=== PATIENT | female | born 1995 | race American Indian/Alaskan Native ===

== ENCOUNTER 2018-03-24 08:42 | Emergency (ER) | payer MEDICAID ==
[2018-03-24 09:29] LABS: HCG,QUALITATIVE URINE NEGATIVE (NEGATIVE)
[2018-03-24 09:31] LABS: SQUAMOUS EPITHIAL 1 /hpf (0-5); URINE BILIRUBIN NEGATIVE (NEGATIVE); URINE BLOOD NEGATIVE (NEGATIVE); URINE CLARITY Clear (Clear); URINE COLOR Yellow (YELLOW); URINE GLUCOSE (UA) NORMAL (Normal); URINE LEUKOCYTE ESTERASE NEG Leu/uL (Negative); URINE PROTEIN NEGATIVE (NEGATIVE); URINE UROBILINOGEN NORMAL mg/dL (0.2-1.0)
--- NOTE | 2018-03-24 10:52 | C.PDOC ---
History Of Present Illness 22 year old female presents to the ER for evaluation of pelvic pain radiating to her rectum, which began this morning. She states while walking this morning, the pain developed. Patient denies vaginal discharge/bleeding, fever, dysuria, nausea, vomiting. Patient has an IUD, placed 2 years ago after the of her son. She last saw her CIVIL ENGINEERING INTERN last month, states that her exam was normal and IUD was in place. Time Seen by Provider: 03/24/18 09:01 Chief Complaint (Nursing): Female Genitourinary History Per: Patient History/Exam Limitations: no limitations Onset/Duration Of Symptoms: Hrs Current Symptoms Are (Timing): Still Present Severity: Moderate Quality Of Discomfort: "Pain" Abnormal Vaginal Bleeding: No Past Medical History Reviewed: Historical Data, Nursing Documentation, Vital Signs Vital Signs: Last Vital Signs Temp 98.9 F 03/24/18 14:48 Pulse 72 03/24/18 14:48 Resp 20 03/24/18 14:48 BP 104/68 03/24/18 14:48 Pulse Ox 100 03/24/18 15:57 - Medical History PMH: No Chronic Diseases Surgical History: No Surg Hx Family History: States: No Known Family Hx - Social History Hx Tobacco Use: No Hx Alcohol Use: Yes Hx Substance Use: No Review Of Systems Constitutional: Negative for: Fever Gastrointestinal: Positive for: Rectal Pain. Negative for: Nausea, Vomiting, Abdominal Pain Genitourinary: Positive for: Pelvic Pain. Negative for: Dysuria, Hematuria, Vaginal Discharge, Vaginal Bleeding Skin: Negative for: Rash Physical Exam - Physical Exam Appears: Well, Non-toxic, No Acute Distress Skin: Normal Color, Warm, Dry Eye(s): bilateral: Normal Inspection Oral Mucosa: Moist Cardiovascular: Rhythm Regular Respiratory: Normal Breath Sounds, No Accessory Muscle Use, No Wheezing Gastrointestinal/Abdominal: Bowel Sounds, Soft, Tenderness (mild suprapubic tenderness, (-) McBurney's ) Pelvic: Normal External Exam (no vesicular lesions), Normal Speculum Exam, No Vaginal Bleeding, Vaginal Discharge (scant white vaginal discharge in vault), No Cervical Motion Tenderness, No Cervix Open, No Adnexal Tenderness, Tender Uterus (mild), Other (IUD string protruding from the cervical os) Extremity: Bilateral: Atraumatic, Normal Color And Temperature, Normal ROM Neurological/Psych: Oriented x3, Normal Speech Gait: Steady ED Course And Treatment - Laboratory Results Lab Interpretation: Normal (Negative preg, normal UA) O2 Sat by Pulse Oximetry: 100 (RA) Pulse Ox Interpretation: Normal - CT Scan/US Transvaginal/Pelvic US Other Rad Studies (CT/US): Read By Radiologist, Radiology Report Reviewed CT/US Interpretation: Accession No. : [id number]. Patient Name / ID : JIL ESPARZA / [id number]. Exam Date : 03/24/2018 12:22:12 ( Approved ). Study Comment : Sex / Age : F / 22Y. Creator : Chele Chowdhury MD. Dictator : Chele Chowdhury MD. Hog Operator : Pipe Smoking Machine Operator : Chele Chowdhury MD. Approver2 : Report Date : 03/24/2018 13:25:07. My Comment : . Date of service: 03/24/2018. HISTORY: PELVIC PAIN, IUD, EVAL UTERUS OVARIES. COMPARISON: None available. TECHNIQUE: Grayscale, color Doppler and spectral evaluation the pelvis performed transabdominally and transvaginally. FINDINGS: UTERUS: Measures 7.4 x 3.7 x 5.3 cm. Anteverted. Normal in size and appearance. No fibroid or other mass lesion seen. ENDOMETRIUM: Measures 4 mm in diameter. Intrauterine device. Question of a limb of the intrauterine device in the uterine tissue. CERVIX: No cervical abnormality identified. RIGHT OVARY: Measures 4.8 x 2.6 x 3.3 cm. Lobulated hypoechoic area within the right ovary measuring 1.9 x 1.1 x 1.8 cm. Normal flow. LEFT OVARY: Measures cm. No solid mass. Normal flow. FREE FLUID: No significant free fluid noted. OTHER FINDINGS: None. IMPRESSION: Question of a limb of the intrauterine device in the junctional zone/myometrium. Lobulated hypoechoic area within the right ovary measuring up to 1.9 cm with increased through transmission which may represent a hemorrhagic cyst. Short interval follow-up can be obtained as clinically warranted. Progress Note: UA, Upreg ordered and reviewed. Transvaginal US ordered to evaluate IUD. 1:28 - L&D called to discuss patient with data conversion developer, she is currently doing Csection and will call when done. 2:20PM- Discussed patient with data conversion developer regional education coordinator Dr. Gaona. She recommends Ibuprofen 600mg and follow up with patient's data conversion developer for possible removal of IUD. Reevaluation Time: 14:30 Reassessment Condition: Improved (On reassessment, patient is resting comfortably, in no distress/pain. She was instructed to follow up with her ob/ plasma table operator in 1-2 days, and given Rx for Ibuprofen. She understands she should return to ED immediately if symptoms worsen.) - Physician Consult Information Physician Contacted: ARI Outcome Of Conversation: Discussed patient with data conversion developer regional education coordinator Dr. Gaona, she is aware of US finsings, recommends NSAIDs and follow up with patient's data conversion developer ( may need removal of IUD in OR). Disposition Counseled Patient/Family Regarding: Studies Performed, Diagnosis, Need For Followup, Rx Given - Disposition Referrals: [facility] [Outside] [facility] [Outside] Disposition: HOME/ ROUTINE Disposition Time: 14:30 Condition: STABLE Additional Instructions: FOLLOW UP WITH YOUR CIVIL ENGINEERING INTERN WITHIN 1 WEEK USE PAIN MEDICATION NEEDED RETURN TO ER IF YOUR SYMPTOMS WORSEN Prescriptions: Ibuprofen [Motrin Tab] 600 mg PO Q6 PRN #30 tab PRN Reason: fever/pain Instructions: Acute Pelvic Pain (DC) Forms: Work/School/Gym Excuse, [facility] (Sami) Print Language: AUSTRALIAN - Clinical Impression Clinical Impression: Hemorrhagic cyst of ovary, IUD migration - Scribe Statement The provider has reviewed the documentation as recorded by the Huan Al Provider Attestation: All medical record entries made by the Huan were at my direction and personally dictated by me. I have reviewed the chart and agree that the record accurately reflects my personal performance of the history, physical exam, medical decision making, and the department course for this patient. I have also personally directed, reviewed, and agree with the discharge instructions and disposition.
[2018-03-24 11:18] VITALS: RESP 20
--- NOTE | 2018-03-24 13:26 | US ---
Date of service: 03/24/2018 HISTORY: PELVIC PAIN, IUD, EVAL UTERUS OVARIES COMPARISON: None available. TECHNIQUE: Grayscale, color Doppler and spectral evaluation the pelvis performed transabdominally and transvaginally FINDINGS: UTERUS: Measures 7.4 x 3.7 x 5.3 cm. Anteverted. Normal in size and appearance. No fibroid or other mass lesion seen. ENDOMETRIUM: Measures 4 mm in diameter. Intrauterine device. Question of a limb of the intrauterine device in the uterine tissue. CERVIX: No cervical abnormality identified. RIGHT OVARY: Measures 4.8 x 2.6 x 3.3 cm. Lobulated hypoechoic area within the right ovary measuring 1.9 x 1.1 x 1.8 cm. Normal flow. LEFT OVARY: Measures cm. No solid mass. Normal flow. FREE FLUID: No significant free fluid noted. OTHER FINDINGS: None. IMPRESSION: Question of a limb of the intrauterine device in the junctional zone/myometrium. Lobulated hypoechoic area within the right ovary measuring up to 1.9 cm with increased through transmission which may represent a hemorrhagic cyst. Short interval follow-up can be obtained as clinically warranted.
[2018-03-24 13:29] VITALS: O2SAT 100
[2018-03-24 14:50] VITALS: BP 104/68; PULSE 72; TEMP 98.9
== END 2018-03-24 14:48 | disposition home or self-care (01) ==
LOC: C.ER 08:42
DX: N83.209 Unspecified ovarian cyst, unspecified side (principal); Z97.5 Presence of (intrauterine) contraceptive device

== ENCOUNTER 2018-06-17 09:38 | Emergency (ER) | payer MEDICAID ==
[2018-06-17 09:53] VITALS: O2SAT 100
[2018-06-17 10:59] LABS: SQUAMOUS EPITHIAL 10 /hpf (0-5); URINE BACTERIA RARE (<OCC); URINE BILIRUBIN NEGATIVE (NEGATIVE); URINE BLOOD NEGATIVE (NEGATIVE); URINE CLARITY Hazy (Clear); URINE COLOR Yellow (YELLOW); URINE GLUCOSE (UA) NORMAL (Normal); URINE LEUKOCYTE ESTERASE 1+ Leu/uL (Negative); URINE PROTEIN NEGATIVE (NEGATIVE); URINE UROBILINOGEN NORMAL mg/dL (0.2-1.0)
--- NOTE | 2018-06-17 11:11 | C.PDOC ---
History Of Present Illness 22 year old female presents to the ED for evaluation of lower abdominal pain bilaterally and vomiting x3 for the last 3 hours today. Notes normal stool this morning, no prior surgeries, and no known allergies to drugs. Reports no pain or feeling nauseous during visit. Denies fever, recent travel, new foods, and any other associated symptoms. <Ginny Armendariz - Last Filed: 06/17/18 13:09> History Per: Patient History/Exam Limitations: no limitations Onset/Duration Of Symptoms: Hrs Current Symptoms Are (Timing): Gone <Ginny Armendariz - Last Filed: 06/17/18 13:09> <Tegan Botello - Last Filed: 06/18/18 08:59> Time Seen by Provider: 06/17/18 10:02 Chief Complaint (Nursing): Abdominal Pain Past Medical History Reviewed: Historical Data, Nursing Documentation, Vital Signs Vital Signs: Last Vital Signs Temp 99 F 06/17/18 09:51 Pulse 87 06/17/18 09:51 Resp 18 06/17/18 09:51 BP 120/81 06/17/18 09:51 Pulse Ox 100 06/17/18 09:51 Family History: States: Unknown Family Hx - Social History Hx Tobacco Use: No Hx Alcohol Use: Yes Hx Substance Use: No - Immunization History Hx Tetanus Toxoid Vaccination: No Hx Influenza Vaccination: No Hx Pneumococcal Vaccination: No <Ginny Armendariz - Last Filed: 06/17/18 13:09> Vital Signs: Last Vital Signs Temp 98.1 F 06/17/18 12:25 Pulse 79 06/17/18 12:25 Resp 14 06/17/18 12:25 BP 116/83 06/17/18 12:25 Pulse Ox 100 06/17/18 13:10 <Tegan Botello - Last Filed: 06/18/18 08:59> Review Of Systems Except As Marked, All Systems Reviewed And Found Negative. Constitutional: Negative for: Fever, Chills Gastrointestinal: Positive for: Nausea, Vomiting, Abdominal Pain (lower abdomi nal. bilaterally. ) <Ginny Armendariz - Last Filed: 06/17/18 13:09> Physical Exam - Physical Exam Appears: Well, Non-toxic, No Acute Distress Skin: Normal Color, Warm, Dry Head: Atraumatic, Normacephalic Eye(s): bilateral: Normal Inspection Oral Mucosa: Moist Neck: Normal ROM, Supple Chest: Symmetrical, No Deformity Cardiovascular: Rhythm Regular, No Murmur Respiratory: Normal Breath Sounds, No Rales, No Rhonchi, No Wheezing Gastrointestinal/Abdominal: Normal Exam, Soft, No Tenderness, No Distention, No Guarding, No Rebound Extremity: Normal ROM (x4), No Deformity Neurological/Psych: Oriented x3, Normal Speech, Normal Motor, Normal Sensation, Normal Reflexes Gait: Steady <Ginny Armendariz - Last Filed: 06/17/18 13:09> ED Course And Treatment - Laboratory Results Urine POC: Negative O2 Sat by Pulse Oximetry: 100 (RA) Pulse Ox Interpretation: Normal <Ginny Armendariz - Last Filed: 06/17/18 13:09> Medical Decision Making Medical Decision Making: Plan: --Urinalysis. --Urine HCG --Given: Zofran ODT Progress/Update: Patient stable for discharge home. Prescribed Macrobid and Motrin. <Ginny Armendariz - Last Filed: 06/17/18 13:09> Disposition - Disposition Disposition Time: 12:14 <Ginny Armendariz - Last Filed: 06/17/18 13:09> <Tegan Botello - Last Filed: 06/18/18 08:59> - Disposition Referrals: [facility] [Outside] [facility] [Outside] Disposition: HOME/ ROUTINE Condition: GOOD Additional Instructions: Follow up with the medical doctor within 1-2 days. Return if worsened. Prescriptions: Ibuprofen [Motrin] 1 tab PO TID PRN #30 tab PRN Reason: Pain Nitrofurantoin Macrocrystals [Macrobid] 1 cap PO BID #14 cap Instructions: Urinary Tract Infections in Adults Forms: [facility] (Montserratian), Work Excuse - Clinical Impression Clinical Impression: UTI (urinary tract infection) - PA / HOME HEALTH PHYSICAL THERAPIST / Resident Statement MD/DO has reviewed & agrees with the documentation as recorded. - Scribe Statement The provider has reviewed the documentation as recorded by the Scribe (Christiana Hernandez) All medical record entries made by the Scribe were at my direction and personally dictated by me. I have reviewed the chart and agree that the record accurately reflects my personal performance of the history, physical exam, medical decision making, and the department course for this patient. I have also personally directed, reviewed, and agree with the discharge instructions and disposition. <Ginny Armendariz - Last Filed: 06/17/18 13:09>
[2018-06-17 12:26] VITALS: BP 116/83; PULSE 79; RESP 14; TEMP 98.1
== END 2018-06-17 12:26 | disposition home or self-care (01) ==
LOC: C.ER 09:38
DX: N39.0 Urinary tract infection, site not specified (principal)

== ENCOUNTER 2018-08-07 16:46 | Emergency (ER) | payer MEDICAID ==
[2018-08-07 16:53] VITALS: PULSE 72; RESP 20; TEMP 98.1; O2SAT 100
--- NOTE | 2018-08-07 17:13 | C.PDOC ---
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 The patient reports that similar symptoms happened 2 months ago but the symptoms resolved spontaneously. Patient denies sob, nausea, vomiting, palpitations, fever, numbness, weakness, recent travel or any other complaints at this time. Patient reports that she currently has no chest pain. Time Seen by Provider: 08/07/18 17:02 Chief Complaint (Nursing): Chest Pain History Per: Patient History/Exam Limitations: no limitations Onset/Duration Of Symptoms: Hrs Current Symptoms Are (Timing): Still Present Pain Scale Rating Of: 1 Quality: "Pain" Exacerbating Factors: Deep Breathing Recent travel outside of the [place]: No Past Medical History Reviewed: Historical Data, Nursing Documentation, Vital Signs Vital Signs: Last Vital Signs Temp 98.1 F 08/07/18 16:49 Pulse 72 08/07/18 16:49 Resp 20 08/07/18 16:49 BP 118/79 08/07/18 16:49 Pulse Ox 100 08/07/18 16:49 - Medical History PMH: No Chronic Diseases Surgical History: No Surg Hx Family History: States: No Known Family Hx - Social History Hx Tobacco Use: No Hx Alcohol Use: Yes Hx Substance Use: No - Immunization History Hx Tetanus Toxoid Vaccination: No Hx Influenza Vaccination: No Hx Pneumococcal Vaccination: No Review Of Systems Constitutional: Negative for: Fever, Chills Cardiovascular: Positive for: Chest Pain. Negative for: Palpitations Respiratory: Negative for: Cough, Shortness of Breath Gastrointestinal: Negative for: Nausea, Vomiting Skin: Negative for: Rash Physical Exam - Physical Exam Appears: Non-toxic, No Acute Distress Skin: Warm, Dry, No Rash Head: Atraumatic, Normacephalic Eye(s): bilateral: Normal Inspection Oral Mucosa: Moist Throat: No Erythema, No Exudate Neck: Normal ROM, No Midline Cervical Tenderness, No Paracervical Tenderness, Supple Chest: Symmetrical, Tenderness (anterior chest wall ), No Ecchymosis Cardiovascular: Rhythm Regular, No Friction Rub, No Murmur Respiratory: Normal Breath Sounds, No Accessory Muscle Use, No Rales, No Rhonchi, No Wheezing Gastrointestinal/Abdominal: Soft, No Tenderness, No Guarding, No Rebound Back: Normal Inspection, No CVA Tenderness Extremity: Normal ROM, No Pedal Edema, Capillary Refill (<2 seconds), No Swelling Neurological/Psych: Oriented x3, Normal Speech, Normal Cognition, Normal Motor ED Course And Treatment ECG: Interpreted By Me, Viewed By Me ECG Rhythm: Sinus Rhythm Rate From EC (BPMR) O2 Sat by Pulse Oximetry: 100 (RA) Pulse Ox Interpretation: Normal - Other Rad CXR X-Ray: Viewed By Me, Read By Radiologist Interpretation: Date of service: 08/07/2018. HISTORY: chest pain,. COMPARISON: No prior. TECHNIQUE: Chest PA and lateral. FINDINGS: LUNGS: No active pulmonary disease. PLEURA: No significant pleural effusion identified. No pneumothorax apparent. CARDIOVASCULAR: No aortic atherosclerotic calcification present. Normal cardiac size. No pulmonary vascular congestion. OSSEOUS STRUCTURES: No significant abnormalities. VISUALIZED UPPER ABDOMEN: Normal. OTHER FINDINGS: None. IMPRESSION: No active disease. Medical Decision Making Medical Decision Making: CXR is negative. On re-exam, the patient is resting comfortably and reports no pain. Lungs are CTA, heart is RRR, abdomen is soft, non-tender and tolerating PO well. Ambulatory in the ED with steady gait. Follow up with the medical doctor within 1-2 days. Return if worsened. Disposition - Disposition Referrals: [facility] at [facility] [Outside] Anel Stewart MD [Staff Provider] - Javier Soriano MD [Staff Provider] - Disposition: HOME/ ROUTINE Disposition Time: 18:12 Condition: STABLE Additional Instructions: Follow up with the medical doctor within 1-2 days. Return if worsened. Prescriptions: Naproxen [Naprosyn] 500 mg PO BID #20 tab Instructions: Costochondritis (DC) Forms: [facility] (Stateless), Work Excuse - Clinical Impression Clinical Impression: Costochondritis - PA / CALENDAR CONTROL CLERK BLOOD BANK / Resident Statement MD/DO has reviewed & agrees with the documentation as recorded. - Scribe Statement The provider has reviewed the documentation as recorded by the Zhouibchan Rutledge All medical record entries made by the Zhouibchan were at my direction and personally dictated by me. I have reviewed the chart and agree that the record accurately reflects my personal performance of the history, physical exam, medical decision making, and the department course for this patient. I have also personally directed, reviewed, and agree with the discharge instructions and disposition.
--- NOTE | 2018-08-07 17:37 | RAD ---
Date of service: 08/07/2018 HISTORY: chest pain, COMPARISON: No prior. TECHNIQUE: Chest PA and lateral FINDINGS: LUNGS: No active pulmonary disease. PLEURA: No significant pleural effusion identified. No pneumothorax apparent. CARDIOVASCULAR: No aortic atherosclerotic calcification present. Normal cardiac size. No pulmonary vascular congestion. OSSEOUS STRUCTURES: No significant abnormalities. VISUALIZED UPPER ABDOMEN: Normal. OTHER FINDINGS: None. IMPRESSION: No active disease.
[2018-08-07 17:43] VITALS: BP 131/73
== END 2018-08-07 18:44 | disposition home or self-care (01) ==
LOC: C.ER 16:46
DX: M94.0 Chondrocostal junction syndrome [Tietze] (principal)

== ENCOUNTER 2018-10-28 17:43 | Emergency (ER) | payer MEDICAID ==
[2018-10-28 19:23] VITALS: BP 124/74; PULSE 102; RESP 20; TEMP 98.2; O2SAT 98
--- NOTE | 2018-10-28 19:35 | C.PDOC ---
History Of Present Illness 23 year old female presents to the ED for evaluation of flu-like symptoms which began one week ago. Patient was evaluated in another facility 3 days ago. She states she still feels weak, tired, and has generalized body aches and presents to the ED for further evaluation. She denies fever, chills, nausea, vomiting. Time Seen by Provider: 10/28/18 18:42 Chief Complaint (Nursing): Flu-like Symptoms History Per: Patient History/Exam Limitations: no limitations Onset/Duration Of Symptoms: Other (one week ) Current Symptoms Are (Timing): Still Present Location Of Pain: Diffuse Myalgias Associated Symptoms: denies: Fever, Chills, Nausea, Vomiting Additional History Per: Patient Past Medical History Reviewed: Historical Data, Nursing Documentation, Vital Signs Vital Signs: Last Vital Signs Temp 98.2 F 10/28/18 19:10 Pulse 102 H 10/28/18 19:10 Resp 20 10/28/18 19:10 BP 124/74 10/28/18 19:10 Pulse Ox 98 10/28/18 19:10 - Medical History PMH: No Chronic Diseases Surgical History: No Surg Hx Family History: States: Unknown Family Hx - Social History Hx Tobacco Use: No Hx Alcohol Use: Yes Hx Substance Use: No - Immunization History Hx Tetanus Toxoid Vaccination: No Hx Influenza Vaccination: No Hx Pneumococcal Vaccination: No Review Of Systems Constitutional: Positive for: Weakness. Negative for: Fever, Chills Gastrointestinal: Negative for: Nausea, Vomiting Musculoskeletal: Positive for: Other (generalized body aches ) Physical Exam - Physical Exam Appears: Non-toxic, No Acute Distress Skin: Normal Color, Warm, Dry Head: Atraumatic, Normacephalic Eye(s): bilateral: Normal Inspection Oral Mucosa: Moist Neck: Supple Chest: Symmetrical, No Deformity, No Tenderness Cardiovascular: Rhythm Regular, No Murmur Respiratory: Normal Breath Sounds, No Rales, No Rhonchi, No Wheezing Extremity: Normal ROM, Capillary Refill (less than 2 seconds ) Neurological/Psych: Oriented x3, Normal Speech, Normal Cognition ED Course And Treatment O2 Sat by Pulse Oximetry: 98 (on RA) Pulse Ox Interpretation: Normal Medical Decision Making Medical Decision Making: flu like symptoms x 1 week. Tylenol PO given. Disposition Counseled Patient/Family Regarding: Diagnosis, Need For Followup, Rx Given - Disposition Referrals: [facility] [Outside] Disposition: HOME/ ROUTINE Disposition Time: 19:34 Condition: GOOD Additional Instructions: Drink increased fluids. Take ibupforen or tlyneol every 6 hoours for body aches. Drink increased fluids like water, tea, gatorade. Increased bed rest. Instructions: Flu, Adult (DC) Forms: General Discharge Instructions, [facility] (Malay), Work Excuse - Clinical Impression Clinical Impression: Influenza-like illness - PA / SENIOR LEAD JAVA DEVELOPER / Resident Statement MD/DO has reviewed & agrees with the documentation as recorded. - Scribe Statement The provider has reviewed the documentation as recorded by the Scribe (Jaimie Trujillo) All medical record entries made by the Scribe were at my direction and personally dictated by me. I have reviewed the chart and agree that the record accurately reflects my personal performance of the history, physical exam, medical decision making, and the department course for this patient. I have also personally directed, reviewed, and agree with the discharge instructions and disposition.
--- NOTE | 2018-10-29 21:41 | CARD ---
APPROVED REPORT Date of service: 10/28/2018 EKG Measurement Heart [id number] <Conclusion> Normal sinus rhythm Nonspecific T wave abnormality Abnormal ECG
== END 2018-10-28 20:02 | disposition home or self-care (01) ==
LOC: C.ER 17:43
DX: J11.1 Influenza due to unidentified influenza virus with other respiratory manifestations (principal)